=== PATIENT | female | born 1950 | race Caucasian/White ===

== ENCOUNTER 2019-08-24 07:03 | Inpatient (IN) ==
[2019-08-17 12:11] LABS: Appearance,Urine HAZY; Bacteria,Urine MOD /hpf (0); Bilirubin,Urine NEG (NEG); Color,Urine YELLOW; Culture Indicated,Urine YES; Glucose,Urine (UA) NEGATIVE (NEG); Ketones,Urine NEG (NEG); Leukocyte Esterase,Urine 250 /uL (NEG); Mucus,Urine MOD /hpf (0); Nitrate,Urine NEG (NEG); Protein,Urine NEG (NEG); Specific Gravity,Urine 1.019 (1.000-1.035); Urine Blood NEG mg/dL (<0.03); Urine RBC 0 /hpf (0-1); Urine Squamous Epithelial Cell 2 /hpf (0-4); Urine WBC 20 /hpf (0-4); Urobilinogen,Urine NEG (NEG)
[2019-08-17 12:57] LABS: Blood Urea Nitrogen 18 mg/dl (8-23); Calcium 9.4 mg/dl (8.6-10.4); Carbon Dioxide 25 mmol/L (22-30); Chloride 102 mmol/L (96-108); Glomerular Filtration Rate 90; Glucose 147 mg/dL (70-105)
[2019-08-17 13:12] LABS: Basophils # (Auto) 0.1 K/mcL (0.0-0.3); Basophils % (Auto) 0.5 % (0.0-2.0); Eosinophils # (Auto) 0.3 K/mcL (0.0-0.7); Granulocytes % (Auto) 57.4 % (38.0-78.0); Hematocrit 41.1 % (36.0-48.0); Hemoglobin 13.5 g/dL (12.0-15.0); Lymphocytes # (Auto) 3.5 K/mcL (1.5-4.8); Lymphocytes % (Auto) 32.8 % (15.5-49.0); Mean Cell Volume 85.8 fL (80.0-100.0); Mean Corpuscular HGB Conc 32.8 g/dL (31.0-36.0); Mean Platelet Volume 9.3 fL (7.4-10.4); Monocytes # (Auto) 0.7 K/mcL (0.1-0.9); Monocytes % (Auto) 6.3 % (1.0-12.0); Platelet Count 288 K/mcL (140-440); Red Cell Distribution Width 14.1 % (11.5-14.5); WBC 10.5 K/mcL (4.5-11.0)
[2019-08-17 13:56] LABS: Estimated Average Glucose(eAG) 148 mg/dL; Hemoglobin A1C 6.8 % HGB (4.0-6.0)
[~2019-08-24 07:03] MED LIST: 0.9 % SODIUM CHLORIDE 9 ML, KETOROLAC 30 MG, ROPIVACAINE HCL/PF 49.5 ML, EPINEPHrine 0.... IJ SCH; CELECOXIB 200 MG CAPSULE PO SCH; IPRATROPIUM/ALBUTEROL 3 ML AMPUL.NEB NEB PRN; PREGABALIN 75 MG CAPSULE PO SCH; SCOPOLAMINE 1 PATCH PATCH TOPICAL PRN; ceFAZolin 2 GM in DEXTROSE 5% IN WATER 50 ML IV SCH; oxyCODONE 10 MG TAB.ER.12H PO SCH
[2019-08-24 08:39] LABS: Appearance,Urine CLEAR; Bacteria,Urine 0 /hpf (0); Bilirubin,Urine NEG (NEG); Color,Urine YELLOW; Culture Indicated,Urine NO; Glucose,Urine (UA) NEGATIVE (NEG); Ketones,Urine NEG (NEG); Leukocyte Esterase,Urine NEG /uL (NEG); Mucus,Urine MOD /hpf (0); Nitrate,Urine NEG (NEG); Protein,Urine 30 mg/dL (NEG); Urine Blood NEG mg/dL (<0.03); Urine Hyaline Cast 10 /lpf (0-2); Urine RBC 1 /hpf (0-1); Urine Squamous Epithelial Cell < 1 /hpf (0-4); Urine WBC 1 /hpf (0-4); Urobilinogen,Urine NEG (NEG)
[2019-08-24] MEDS ORDERED: DEXAMETHASONE 10 MG/ML VIAL ONE (11:20)
[2019-08-24] MEDS ORDERED: ONDANSETRON 4 MG/2 ML VIAL ONE (11:20)
[2019-08-24] MEDS ORDERED: ePHEDrine 50 MG/ML AMPUL IV ONE (11:20)
[2019-08-24] MEDS ORDERED: LIDOCAINE HCL/PF 100 MG/5 ML SYRINGE IV ONE (11:20)
[2019-08-24] MEDS ORDERED: MIDAZOLAM 2 MG/2 ML VIAL ONE (11:20)
[2019-08-24] MEDS ORDERED: PHENYLEPHRINE 10 MG/ML VIAL ONE (11:20)
[2019-08-24] MEDS ORDERED: KETAMINE 10 MG/ML ML ONE (11:20)
[2019-08-24] MEDS ORDERED: PROPOFOL 200 MG/20 ML VIAL IV ONE (11:20)
[2019-08-24] MEDS ORDERED: MEPERIDINE 25 MG/ML SYRINGE IV PRN (12:26)
[2019-08-24] MEDS ORDERED: IPRATROPIUM/ALBUTEROL 3 ML AMPUL.NEB NEB PRN (12:26)
[2019-08-24] MEDS ORDERED: NALOXONE HCL 0.4 MG/ML VIAL IV PRN (12:26)
[2019-08-24] MEDS ORDERED: FLUMAZENIL 0.1 MG/ML ML IV PRN (12:26)
[2019-08-24] MEDS ORDERED: ACETAMINOPHEN 1,000 MG/100 ML BOTTLE IV ONE (12:26)
[2019-08-24] MEDS ORDERED: METOPROLOL TARTRATE 5 MG/5 ML VIAL IV PRN (12:26)
[2019-08-24] MEDS ORDERED: diphenhydrAMINE 50 MG/ML VIAL IV PRN (12:26)
[2019-08-24] MEDS ORDERED: METHOCARBAMOL 1,000 MG/10 ML VIAL IV PRN (12:26)
[2019-08-24] MEDS ORDERED: ATROPINE SULFATE 0.4 MG/ML VIAL IV PRN (12:26)
[2019-08-24] MEDS ORDERED: fentaNYL 100 MCG/2 ML VIAL IV PRN (12:26)
[2019-08-24] MEDS ORDERED: ONDANSETRON 4 MG/2 ML VIAL IV PRN ×2 (12:26→13:10)
[2019-08-24] MEDS ORDERED: ePHEDrine 50 MG/ML AMPUL IV PRN (12:26)
[2019-08-24] MEDS ORDERED: LACTATED RINGERS 1,000 ML IV SCH (12:30)
[2019-08-24] MEDS ORDERED: BENZOCAINE/MENTHOL 1 LOZENGE PO PRN (13:10)
[2019-08-24] MEDS ORDERED: MAGNESIUM HYDROXIDE 30 ML ORAL.SUSP PO PRN (13:10)
[2019-08-24] MEDS ORDERED: FLEETS ADULT ENEMA PR PRN (13:10)
[2019-08-24] MEDS ORDERED: TRANEXAMIC ACID 1,000 MG/10 ML VIAL IV ONE (13:10)
[2019-08-24] MEDS ORDERED: POLYETHYLENE GLYCOL 3350 17 GM PACKET PO PRN (13:10)
[2019-08-24] MEDS ORDERED: HYDROmorphone 2 MG/ML VIAL IV PRN (13:10)
[2019-08-24] MEDS ORDERED: BISACODYL 10 MG SUPP.RECT PR PRN (13:10)
--- NOTE | 2019-08-24 13:10 | Brief Operative Note ---
Date of procedure: 08/24/19 Pre-op diagnosis: R knee severe DJD Post-op diagnosis: same Procedure: Right robotic assisted total knee arthroplasty Grafts/Implants: Yes (Sixto Triathlon CR 4 femur, 4 tibia, 11 CS insert, 33 patella) Anesthesia: spinal, GLMA Findings: severe arthritis Complications: none Surgeon: Femi Zhang Clerical Order Filler: Alejandro Welch Estimated blood loss (cc): 30 Specimens Removed/Pathology: none sent Condition: stable Disposition: PACU
[2019-08-24] MEDS ORDERED: DEXTROSE 50% 50 ML VIAL IV PRN (13:14)
[2019-08-24] MEDS ORDERED: DEXTROSE 31 GM ORAL.SUSP PO PRN (13:14)
--- NOTE | 2019-08-24 13:52 | Operative Note ---
DATE OF OPERATION: 08/24/2019 PREOPERATIVE DIAGNOSIS: Right knee severe osteoarthritis. POSTOPERATIVE DIAGNOSIS: Right knee severe osteoarthritis. PROCEDURE PERFORMED: Right robotic-assisted total knee arthroplasty placing a Sixto triathlon size 4 cruciate retaining femoral component, size 4 tibial baseplate, an 11 X3 mm CS insert with a 33 mm patellar button. SURGEON: Femi Zhang MD CHARGE WEIGHER: Paul Welch PA-C. This provider's expertise and technical skill were required throughout the case. The PA assisted with preoperative coordination, intraoperative retraction, wound closure, dressing and splint application, as well as postoperative documentation and care coordination. ANESTHESIA: Spinal plus general. DRAINS: None. SPECIMENS: Bone cuts, which were discarded. BLOOD LOSS: Less than 30 mL COMPLICATIONS: None. POSTOPERATIVE CONDITION: Stable. INDICATIONS FOR SURGERY: This is a 69-year-old female who has had progressive worsening knee pain. Radiographs showed [id number] osteoarthritis. FINDINGS AT SURGERY: Severe arthritis with some generalized ligamentous laxity. Post implantation showed good limb alignment, patellar tracking, and joint stability. PROCEDURE IN DETAIL: The patient had been seen preoperatively. Informed consent had been obtained after discussion of risks, benefits of surgery. Risks including, but not limited to, bleeding, possibly requiring transfusion; infection, possibly requiring implant removal and prolonged IV antibiotics; injury to nerves, blood vessels, and other surrounding structures; anesthetic risks; incomplete or no resolution of symptoms; stiffness; swelling; pain; DVT and pulmonary embolus risks; and the possibility of needing further revision joint surgery. She understood these risks and wished to proceed. Correct operative site was marked and then spinal anesthesia was given. She was then taken to the operating room and LMA general given. The right lower extremity was then carefully prepped and draped in normal sterile fashion and a timeout was performed verifying patient name, operative site, and plan. Ioban was used to cover all skin surfaces and then Esmarch was used to exsanguinate the extremity and tourniquet was inflated to 350 mmHg. A midline incision was made with scalpel through skin and subcutaneous tissue. IrriSept was irrigated and then a medial parapatellar arthrotomy was made. Subperiosteal exposure was done of the anterior medial tibia. Retropatellar fat pad was excised as well as anterior horns of the menisci. We did a freehand resection of the patella and placed a cut protector. We then made two stab incisions over the femur and two over the tibia and bicortical pins were placed and the arrays were connected. We then did our hip center of rotation check. We had our femoral and tibial checkpoints placed and used the green probe to the medial and lateral malleoli. We then double checked our checkpoints. The blue probe was then used to do our mapping. A rongeur was then used to remove osteophytes. We then checked our flexion, extension gaps. We then adjusted our implants virtually until we had 17 mm gaps medially in flexion and extension and laterally in flexion. Extension we were down to about 20 mm, but we had 3 degrees of varus placed in the femur already. We checked our patellar tracking, which was good as well, so we went ahead and used the robotic arm to make our bone cuts. We then used the tibial baseplate trial, externally rotated as bone coverage would allow and pinned this into place. Boss reamer and keel punch were used to repair and then a keeled tibial trial was placed. Femur was elevated and a curved osteotome used to remove osteophytes as well as with a curved curet. We then placed a femoral trial component and pinned this into place flush with the lateral cortex. We then drilled our peg holes. A 9 insert trial was placed. We went into several degrees of hyperextension. This was similar to her pre- bone resection hyperextension, however. We did then prepare our patella sizing it to a 33 and medializing maximally. Holes were drilled and then a patellar trial placed and then a lateral facetectomy was performed. We checked our patellar tracking, which was satisfactory without substantial tilt or subluxation. We then removed trial implants while definitive implants were opened. We irrigated the joint with IrriSept. Antibiotic Palacos was mixed on the back table. After a minute of IrriSept, we pulse lavaged copiously with saline and used the CO2 gun to clean and dry the cancellous bone surfaces. We cemented the tibia and removed excess cement. We cemented the femur and then removed excess cement and then a 9 insert trial was placed. The knee was taken into extension and we cemented the patellar button. While cement was curing, we removed our checkpoints as well as our arrays and pins in the femur and tibia. The joint was filled with IrriSept and then we injected pain cocktail in the pericapsular and subcutaneous tissues. Once cement had fully dried, we flexed the knee up and inspected and then removed any remaining cement with an osteotome. We removed the insert trial and due to her laxity and hyperextension with the 9 we chose an 11 CS insert. We injected the remaining pain cocktail in the posteromedial capsule. We irrigated the tray with IrriSept and then impacted the insert, carefully verifying it was fully seated. We then placed the knee in extension and filled the joint with IrriSept again and waited a minute. After that we pulse lavaged copiously with saline. We then flexed the knee up to 45 degrees. Interrupted [id number] #2 FiberWire was used around the superior quadrant of the patella, interrupted #1 Vicryl [id number] around the inferior quadrant, running #1 Vicryl was used for patellar tendon and quad tendon. Final IrriSept irrigation was done, after a minute final pulse lavage, and then 2-0 Monocryl was used for subcutaneous and donis for skin. Xeroform sterile dressings were applied. Tourniquet was released. The patient was awakened, extubated, and transferred to recovery in stable condition. BJB:susi Job ID: [id number] Doc ID: [id number] Femi Zhang MD
--- NOTE | 2019-08-24 14:25 | XRay Report ---
HISTORY: Postop right knee replacement FINDINGS: There is a well-positioned right total knee prosthesis. No fracture is present and there are no abnormal soft tissue calcifications. IMPRESSION: Well-positioned knee prosthesis Interpreted and Authenticated by: Kwadwo Collins 08/24/19
[2019-08-24] MEDS: 0.9 % SODIUM CHLORIDE 10 ML SYRINGE IV SCH ×2 (14:31→23:14)
[2019-08-24] MEDS: 0.9 % SODIUM CHLORIDE 1,000 ML IV SCH ×2 (14:38→23:15)
[2019-08-24] MEDS: HYDROcodone/APAP 10/325MG TABLET PO PRN ×2 (17:12→21:12)
[2019-08-24] MEDS: metFORMIN 500 MG TAB.XL.24H PO SCH (17:12)
[2019-08-24] MEDS: KETOROLAC 15 MG/ML VIAL IV SCH (17:13)
[2019-08-24] MEDS: INSULIN LISPRO 1 UNIT/0.01 ML UNIT SQ SCH ×2 (17:13→21:27)
[2019-08-24] MEDS: ceFAZolin 1 GM VIAL IV SCH (19:32)
[2019-08-24] MEDS ORDERED: SENNOSIDES 1 TABLET PO SCH (21:00)
[2019-08-24] MEDS: ASPIRIN 81 MG TAB.CHEW PO SCH (21:12)
[2019-08-24] MEDS: DOCUSATE SODIUM 100 MG CAPSULE PO SCH (21:12)
[2019-08-24] MEDS: LOSARTAN 50 MG TABLET PO SCH (21:12)
[2019-08-25] MEDS: KETOROLAC 15 MG/ML VIAL IV SCH ×2 (00:31→06:09)
[2019-08-25] MEDS: HYDROcodone/APAP 10/325MG TABLET PO PRN ×3 (01:00→10:41)
[2019-08-25] MEDS: ceFAZolin 1 GM VIAL IV SCH (03:03)
[2019-08-25] MEDS: 0.9 % SODIUM CHLORIDE 10 ML SYRINGE IV SCH (06:09)
[2019-08-25] MEDS: CETIRIZINE 10 MG TABLET PO SCH ×2 (06:28→08:06)
[2019-08-25] MEDS: INSULIN LISPRO 1 UNIT/0.01 ML UNIT SQ SCH (07:00)
[2019-08-25] MEDS ORDERED: PANTOPRAZOLE 40 MG TABLET PO SCH (07:30)
--- NOTE | 2019-08-25 07:39 | Discharge Summary ---
Providers - Providers Patient information: Note initiated : 08/25/19 at 7:36 am Service Date, if different from initiated Date: [] Patient: Pao Goetz 69 y/o F admitted on 08/24/19 for Right Total Knee Arthroplasty [place]. Chief Complaint: [] Discharge date: 08/25/19 Hospitalization Hospital Course: Pt was admitted for a R TKA. Pt admitted on the day of procedure. Pt transferred to the floor for IV pain meds, IV abx and PT. Pt discharged to home on post-op day1. Will f/u in 2weeks. Will take ASA for DVT prophylaxis. Discharge diagnosis: R knee OA Exam - Exam Clean and dry: Yes Weight bearing status: as tolerated Ortho Discharge - TKA - Patient Instructions Diet: Regular Diet Activity: partial weight bearing Total Knee Protocol: For Total Knee: Start ROM JANESSA with stationary bike or rocking chair. Work on gaining full extension of knee. Posterior dislocation precautions provided. Hip abductor strengthening and gait training instructions provided. Apply Cryocuff as instructed. Dressing Care: May shower in 2 days - Follow Up Plan Follow Up Appointments: Alejandro Welch PA-C [Phys[facility]] - 09/08/19 10:00 am Disposition: Home, Self-Care Prognosis: Good Rehab Potential: Good Overall status at discharge: patient is progressing back to baseline - Orders For Discharge Prescriptions: Aspirin 81 mg PO BID #30 tab.chew Transmission Status: Pending to [facility] 2005 HYDROcodone/APAP 10/325MG [[place] 10-325Mg] 1 - 2 tab PO Q4HP PRN #75 tab PRN Reason: Pain Level 3-6 Prescription Printed Pending Studies Resuscitation Status Full Code Diet Consistent Carbohydrate Diet Start ThuAug 24 1311 Hydrocodone Bitart/Acetaminophen ([place] 10/325mg) 0 tab PO Q4HP PRN PRN Reason: PAIN LEVEL 3-6 Last Admin: 08/25/19 06:09 Dose: 1 tab Documented by: Admin: 08/25/19 01:00 Dose: 2 tab Documented by: Admin: 08/24/19 21:12 Dose: 2 tab Documented by: Admin: 08/24/19 17:12 Dose: 2 tab Documented by: [email or web address] Aspirin (Aspirin) 81 mg PO BID [facility] Last Admin: 08/24/19 21:12 Dose: 81 mg Documented by: FINESSE Cetirizine HCl (Zyrtec) 10 mg PO DAILY [facility] Last Admin: 08/25/19 06:28 Dose: 10 mg Documented by: FINESSE Diagnostic Test (Pha) (Accu-Chek) 1 each FS ACHS [facility] Last Admin: 08/25/19 06:59 Dose: 1 each Documented by: Admin: 08/24/19 21:21 Dose: 1 each Documented by: Admin: 08/24/19 17:11 Dose: 1 each Documented by: ANTONINO Docusate Sodium (Colace) 100 mg PO BID [facility] Last Admin: 08/24/19 21:12 Dose: 100 mg Documented by: FINESSE Hydromorphone HCl (Dilaudid) 0 mg IV Q2HP PRN PRN Reason: PAIN LEVEL > 6 Last Admin: 08/24/19 14:38 Dose: 0.5 mg Documented by: ANTONINO Sodium Chloride (Sodium Chloride 0.9%) 1,000 mls @ 100 mls/hr IV .Q10H [facility] Last Infusion: 08/25/19 00:59 Dose: 0 mls/hr Documented by: Admin: 08/24/19 23:15 Dose: Not Given Documented by: Admin: 08/24/19 14:38 Dose: 100 mls/hr Documented by: ANTONINO Insulin Human Lispro (Humalog) 0 unit SQ ACHS [facility]; Protocol Last Admin: 08/25/19 07:00 Dose: 2 units Documented by: Admin: 08/24/19 21:27 Dose: 6 units Documented by: Admin: 08/24/19 17:13 Dose: 4 units Documented by: ANTONINO Ketorolac Tromethamine (Toradol) 15 mg IV Q6 [facility] Stop: 08/26/19 12:01 Last Admin: 08/25/19 06:09 Dose: 15 mg Documented by: Admin: 08/25/19 00:31 Dose: 15 mg Documented by: Admin: 08/24/19 17:13 Dose: 15 mg Documented by: ANTONINO Losartan Potassium (Cozaar) 50 mg PO BID [facility] Last Admin: 08/24/19 21:12 Dose: 50 mg Documented by: FINESSE Metformin HCl (Glucophage) 1,000 mg PO BIDCC [facility] Last Admin: 08/24/19 17:12 Dose: 1,000 mg Documented by: ANTONINO Pantoprazole Sodium (Protonix) 40 mg PO QAMAC [facility] Last Admin: 08/25/19 06:59 Dose: 40 mg Documented by: ANTONINO Senna (Senokot) 2 tab PO HS [facility] Last Admin: 08/24/19 21:12 Dose: 2 tab Documented by: FINESSE Sodium Chloride (Saline Flush) 10 ml IV Q8 [facility] Last Admin: 08/25/19 06:09 Dose: 10 ml Documented by: Admin: 08/24/19 23:14 Dose: Not Given Documented by: Admin: 08/24/19 14:31 Dose: Not Given Documented by: ANTONINO Shift Summary 08/25/19 03:56 Shift Summary by Beverley Arce Pt is A&Ox4. VSS on RA (SBP running ~ 104/60s). Up to BR w/SBA, FWW. Pt is voiding well. Dressing to right knee CDI. Pt received [place] 10 mg (2 tabs) x2 and scheduled Toradol for pain. IV to LFA, SL. HS Accucheck was 222 and pt got SSI coverage. Will update with verbal report. Initialized on 08/25/19 03:56 - END OF NOTE
[2019-08-25] MEDS ORDERED: POTASSIUM CHLORIDE 10 MEQ TABLET PO SCH (08:00)
[2019-08-25] MEDS: metFORMIN 500 MG TAB.XL.24H PO SCH (08:02)
[2019-08-25] MEDS: DOCUSATE SODIUM 100 MG CAPSULE PO SCH (08:02)
[2019-08-25] MEDS: LOSARTAN 50 MG TABLET PO SCH (08:02)
[2019-08-25] MEDS: ASPIRIN 81 MG TAB.CHEW PO SCH (08:03)
[2019-08-25] MEDS ORDERED: VITAMIN D3 1,000 UNIT TABLET PO SCH (09:00)
[2019-08-25] MEDS ORDERED: FLUTICASONE PROPIONATE SPRAY.NAS NS SCH (09:00)
[2019-08-25] MEDS ORDERED: FUROSEMIDE 20 MG TABLET PO SCH (09:00)
[2019-08-25] MEDS ORDERED: MONTELUKAST 10 MG TABLET PO SCH (09:00)
== END 2019-08-25 11:50 | disposition home or self-care (01) | DRG 470 ==
LOC: MEDSUR 07:03
PROVIDERS: ADMIT Orthopaedic Surgery; ATTEND Orthopaedic Surgery